=== PATIENT | female | born 1965 | race Caucasian/White ===

== ENCOUNTER → 2018-06-18 | Outpatient (CLI) | payer BC, OTHER ==
--- NOTE | 2018-06-18 12:13 | RADIOLOGY IMAGING REPORT ---
FAC[place] [facility] [place] NAME: JUAN PATINO : [id number] MR: [id number] V: [id number] EXAM DATE: [id number] ORDERING PHYSICIAN: DEEP GRACIA TECHNOLOGIST: Kailee Richardson PROCEDURE:BILATERAL DIGITAL SCREENING MAMMOGRAM WITH CAD ASSISTED INTERPRETATION & 3D TOMOSYNTHESIS COMPARISON:None. INDICATIONS:SCREENING FINDINGS: A moderate amount of fibroglandular tissue is seen throughout the breasts. There is less overall density seen throughout the breasts relative to the prior study. Otherwise the parenchymal pattern has remained stable. There is no evidence of malignant appearing mass, malignant appearing calcifications or other secondary sign of malignancy in either breast. DIAGNOSTIC CATEGORY 1--NEGATIVE. RECOMMENDATIONS: ROUTINE MAMMOGRAM AND CLINICAL EVALUATION. IMPRESSION: BIRADS 1: Negative. No significant abnormality is seen. Dictated by: Jeny Corona M.D. on 06/18/2018 at 11:18 Transcribed by: KATIA on 06/18/2018 at 11:34 Approved by: Jeny Corona M.D. on 06/18/2018 at 12:12 [facility]
== END ==
LOC: MAMO 01:01
PROVIDERS: ATTEND Family Medicine
DX: Z12.31 Encounter for screening mammogram for malignant neoplasm of breast (principal)
CPT/HCPCS: 77063; 77067